=== PATIENT | female | born 1985 | race Caucasian/White ===

== ENCOUNTER → 2017-12-30 | Day surgery (SDC) | payer OTHER ==
[~2017-12-30] MED LIST: SINGULAIR10 MG PO; SYNTHROID150 MCG PO; ZYRTEC10 MG PO
== END | disposition home or self-care (01) ==
LOC: ADM 12-24 07:00 → CIR.AMB 04:56
DX: K80.10 Calculus of gallbladder with chronic cholecystitis without obstruction (principal)

== ENCOUNTER 2020-06-12 13:28 | Outpatient (CLI) | payer OTHER | END 2020-06-12 15:08 | disposition home or self-care (01) | LOC: OFIC 805 13:28 | PROVIDERS: ATTEND Otolaryngology Otology & Neurotology | DX: R49.0 Dysphonia (principal); J38.02 Paralysis of vocal cords and larynx, bilateral ==

== ENCOUNTER 2022-09-02 09:37 | Emergency (ER) | payer OTHER ==
[~2022-09-02] VITALS: Ht 152.4 cm; Wt 76.7 kg
[2022-09-02] MEDS ORDERED: NORVASC2.5 M1 PO (10:04)
[2022-09-02] MEDS ORDERED: COZAAR25 MG PO (10:04)
== END 2022-09-02 13:22 | disposition home or self-care (01) ==
LOC: ER 09:37
DX: N39.0 Urinary tract infection, site not specified (principal); I10 Essential (primary) hypertension; E03.9 Hypothyroidism, unspecified